=== PATIENT | female | born 1965 ===

== ENCOUNTER 2020-12-20 08:35 | Emergency (ER) | payer MEDICAID | END 2020-12-20 09:30 | disposition left against medical advice (07) | LOC: ER 08:35 | DX: R07.9 Chest pain, unspecified (principal); Z53.21 Procedure and treatment not carried out due to patient leaving prior to being seen by health care provider | CPT/HCPCS: 93005 ==

== ENCOUNTER 2023-06-01 20:11 | Emergency (ER) | payer MEDICAID | END 2023-06-01 20:41 | disposition left against medical advice (07) | LOC: ER 20:11 | DX: R07.9 Chest pain, unspecified (principal); Z53.21 Procedure and treatment not carried out due to patient leaving prior to being seen by health care provider | CPT/HCPCS: 93005; 99281 ==